=== PATIENT | male | born 1965 | race Caucasian/White ===

== ENCOUNTER 2018-10-01 16:33 | Emergency (ER) | payer BC ==
[~2018-10-01] VITALS: Ht 177.8 cm; Wt 77.1 kg
[2018-10-01 18:13] VITALS: BP 127/78
[2018-10-01] MEDS ORDERED: ACETAMINOPHEN 500 MG TABLET PO ONE (18:30)
[2018-10-01] MEDS ORDERED: IBUPROFEN 400 MG TABLET. PO ONE (18:30)
[2018-10-01 18:48] LABS: INFLUENZA A PATIENT NEGATIVE (NEGATIVE); INFLUENZA B PATIENT NEGATIVE (NEGATIVE)
[2018-10-01] MEDS ORDERED: DOXY100T PO (20:41)
[2018-10-01] MEDS ORDERED: VENTOLIN HFA18 GM INH (20:41)
[2018-10-01] MEDS ORDERED: HYDR5SUS PO (20:41)
--- NOTE | 2018-10-01 20:41 | PHYS DOC ---
Past Medical History Past Medical History: No Pertinent History Past Surgical History: No Surgical History Alcohol Use: None Drug Use: None Adult General Chief Complaint Chief Complaint: FLU SYMPTOM HPI HPI Patient is a 53 year old female with no significant medical history who presents to the ED today complaining of a fever cough and body aches and chills for one week. Patient states she was seen by the PCP a couple days ago, he states they did a flu test which was negative. He states somebody at work has pneumonia. Review of Systems Review of Systems Constitutional: Reports fever, body aches, chills Eyes: Denies change in visual acuity, redness, or eye pain [] HENT: Denies nasal congestion or sore throat [] Respiratory: Reports cough, denies shortness of breath [] Cardiovascular: No additional information not addressed in HPI [] GI: Denies abdominal pain, nausea, vomiting, bloody stools or diarrhea [] : Denies dysuria or hematuria [] Musculoskeletal: Denies back pain or joint pain [] Integument: Denies rash or skin lesions [] Neurologic: Denies headache, focal weakness or sensory changes [] All other systems were reviewed and found to be within normal limits, except as documented in this note. Current Medications Current Medications Current Medications Medications (Trade) Dose Ordered Sig/Moncho Start Time Stop Time Status Last Admin Dose Admin Acetaminophen (Tylenol) 1,000 mg 1X ONCE 10/01/18 18:30 10/01/18 18:31 DC 10/01/18 18:34 1,000 MG Ibuprofen (Motrin) 800 mg 1X ONCE 10/01/18 18:30 10/01/18 18:31 DC 10/01/18 18:34 800 MG Allergies Allergies Allergies Coded Allergies Type Severity Reaction Last Updated Verified No Known Drug Allergies 10/01/18 No Physical Exam Physical Exam Constitutional: Well developed, well nourished, no acute distress, non-toxic appearance. [] HENT: Normocephalic, atraumatic, bilateral external ears normal, oropharynx moist, no oral exudates, nose normal. [] Eyes: PERRLA, EOMI, conjunctiva normal, no discharge. [] Neck: Normal range of motion, no tenderness, supple, no stridor. [] Cardiovascular:Heart rate regular rhythm, no murmur [] Lungs & Thorax: Diminished breath sounds to posterior lower lung bases. Abdomen: Bowel sounds normal, soft, no tenderness, no masses, no pulsatile masses. [] Skin: Warm, dry, no erythema, no rash. [] Back: No tenderness, no CVA tenderness. [] Extremities: No tenderness, no cyanosis, no clubbing, ROM intact, no edema. [] Neurologic: Alert and oriented X 3, normal motor function, normal sensory function, no focal deficits noted. [] Psychologic: Affect normal, judgement normal, mood normal. [] Current Patient Data Vital Signs Vital Signs Date Time Temp Pulse Resp B/P (MAP) Pulse Ox O2 Delivery O2 Flow Rate FiO2 10/01/18 19:56 98.7 98.7 10/01/18 18:13 92 18 127/78 (94) 100 Room Air Lab Values Laboratory Tests Test 10/01/18 18:10 Influenza Type A Antigen Negative (NEGATIVE) Influenza Type B Antigen Negative (NEGATIVE) EKG EKG [] Radiology/Procedures Radiology/Procedures [] Course & Med Decision Making Course & Med Decision Making Pertinent Labs and Imaging studies reviewed. (See chart for details) This is a 53-year-old male patient presented to the ED today with fever, cough, body aches, chills. Symptoms for 1 week. Temperature 102.4 on arrival to the ED. Given Tylenol and Motrin. Negative for influenza A or B. Positive for left lower lobe pneumonia as interpreted by Dr. Joseph. Patient was discharged on doxycycline. Follow-up with PCP in one week. Tylenol or Motrin for pain or fever. Instructed to return to the ED at any point symptoms worsen. Dragon Disclaimer Dragon Disclaimer This electronic medical record was generated, in whole or in part, using a voice recognition dictation system. Departure Departure Impression: Primary Impression: Fever Additional Impression: Left lower lobe pneumonia Disposition: 01 HOME, SELF-CARE Condition: STABLE Referrals: NO PCP (PCP) follow up with your doctor next week Patient Instructions: Fever, Adult, Pneumonia, Adult Additional Instructions: You were evaluated in the emergency room and noted to have pneumonia and a fever. We put you on antibiotics. Ensure you complete them. Take Tylenol or Motrin for pain or fever. Follow-up with your doctor in the course of next week. Come back to the ED at any point symptoms worsen. Scripts Albuterol Sulfate (VENTOLIN HFA INHALER) 18 Gm Hfa.aer.ad 2 PUFF INH Q4HRS for FOR ASTHMA, #1 INHALER 0 Refills Prov: MOOKIE ELIZABETH APRN 10/01/18 Hydrocodone/Chlorphen Polis (HYDROCODONE-CHLORPHENIRAM SUSP) 5 Ml Dayanara.er.12h 5 ML PO PRN Q12HR PRN for COUGH, #100 ML 0 Refills Prov: MOOKIE ELIZABETH APRN 10/01/18 Doxycycline Hyclate (DOXYCYCLINE HYCLATE) 100 Mg Tablet 1 TAB PO BID, #14 TAB Prov: MOOKIE ELIZABETH APRN 10/01/18 Problem Qualifiers Primary Impression: Fever Fever type: unspecified Qualified Codes: R50.9 - Fever, unspecified Additional Impression: Left lower lobe pneumonia Pneumonia type: due to unspecified organism Qualified Codes: J18.1 - Lobar pneumonia, unspecified organism MOOKIE ELIZABETH APRN Oct 01, 2018 20:41
--- NOTE | 2018-10-03 14:39 | RAD ---
Chest, PA and Lateral: Technique: PA and lateral views of the chest were obtained. History: Cough. Comparison: 10/24/2010. Findings: The heart and pulmonary vasculature appear within normal limits. Mild bibasilar lung airspace opacities likely atelectasis or infiltrates.. The pleural margins are clear. Impression: Mild bibasilar lung airspace opacities likely atelectasis or infiltrates. Follow-up to resolution.. Electronically signed by: Amauri Pretty MD (10/03/2018 2:34 PM) [place] [id number]
== END 2018-10-01 20:50 | disposition home or self-care (01) ==
LOC: ER 16:33
DX: J18.1 Lobar pneumonia, unspecified organism (principal); R50.9 Fever, unspecified
CPT/HCPCS: 71046; 87070; 87804; 87880; 99284-25